=== PATIENT | female | born 1990 | race Caucasian/White ===

== ENCOUNTER → 2020-03-01 | Outpatient (CLI) | payer BC ==
[~2020-03-01] MED LIST: CONCERTA PO; LORATADINE10 MG PO; SINGULAIR4 MG PO
== END ==
LOC: ZCOL.LAB 10:07
DX: Z11.59 Encounter for screening for other viral diseases (principal)

== ENCOUNTER 2021-01-25 08:44 | Emergency (ER) | payer BC ==
[~2021-01-25] VITALS: Ht 167.6 cm; Wt 92.7 kg
[~2021-01-25 08:44] MED LIST changes: +SINGULAIR 110 MG/TAB PO; -SINGULAIR4 MG PO
[2021-01-25 09:00] VITALS: TEMP 98.6
[2021-01-25 09:32] LABS: BASO # 0.1 (0.0-0.2); BASO % 0.5 % (0.0-2.0); EOS # 0.2 (0.0-0.7); GRAN # 6.3 (1.4-6.5); GRAN % 67.8 % (42.2-75.2); HEMATOCRIT 40.3 % (37.0-47.0); HEMOGLOBIN 12.9 g/dl (12.5-16.0); LYMPH # 2.2 (1.2-3.4); LYMPH % 23.8 % (20.0-51.0); MEAN CELL VOLUME 89 fl (80.0-100.0); MEAN CORPUSCULAR HEMOGLOBIN 28 pg (27.0-31.0); MEAN CORPUSCULAR HGB CONC 32 g/dl (33.0-37.0); MEAN PLATELET VOLUME 10.3 fl (7.4-10.4); MONO # 0.5 (0.1-0.6); MONO % 5.6 % (1.7-9.3); PLATELET COUNT 334 K/mm3 (130-400); RED BLOOD COUNT 4.54 M/mm3 (4.10-5.30); REDCELL DISTRIBUTION WIDTH-CV 13.7 % (11.5-14.5)
[2021-01-25 09:42] LABS: PROTHROMBIN TIME 11.4 SECONDS (9.7-12.8)
[2021-01-25 09:45] LABS: PARTIAL THROMBOPLASTIN TIME 32.3 SECONDS (26.0-37.0)
[2021-01-25 09:51] LABS: ALANINE AMINOTRANSFERASE 18 U/L (4-34); ALBUMIN 4.1 gm/dL (3.5-5.0); ALKALINE PHOSPHATASE 73 U/L (50-136); ANION GAP 7 mmol/L (7-16); AST,SGOT 28 U/L (15-37); BILIRUBIN,TOTAL 0.3 mg/dL (0.0-1.0); BLOOD UREA NITROGEN 11 mg/dL (7-17); CALCIUM 9.3 mg/dL (8.4-10.2); CARBON DIOXIDE 27 mmol/L (22-30); CHLORIDE 102 mmol/L (98-107); CREATININE, serum 0.65 (0.52-1.25); GLUCOSE 109 mg/dL (74-106); POTASSIUM 4.4 mmol/L (3.4-5.0); SODIUM 136 mmol/L (137-145); TOTAL PROTEIN 7.3 gm/dL (6.4-8.2)
[2021-01-25 09:52] LABS: COLLECTION METHOD CLEAN CATCH
[2021-01-25 09:59] LABS: MUCOUS Present /lpf; PH 7 (5-8); URINE APPEARANCE Clear; URINE BACTERIA Rare /hpf; URINE BILIRUBIN Negative (NEGATIVE); URINE BLOOD Negative (NEGATIVE); URINE COLOR Yellow; URINE GLUCOSE Negative (NEGATIVE); URINE KETONE Negative (NEGATIVE); URINE LEUKOCYTE ESTERASE Negative (NEGATIVE); URINE NITRATE Negative (NEGATIVE); URINE PROTEIN(semi-quant) Negative (NEGATIVE); URINE RBC 0-2 /hpf; URINE UROBILINOGEN Negative (NEGATIVE)
[2021-01-25 10:04] LABS: TROPONIN-I < 0.012 ng/mL (0.000-0.035)
[2021-01-25] MEDS ORDERED: CARDIZEM CD 12120 MG PO (11:31)
[2021-01-25 12:00] VITALS: BP 149/83; PULSE 95
[2021-01-25] MEDS ORDERED: SPIRIVA RE2.5 MCG/Ac IH (16:34)
[2021-01-25] MEDS ORDERED: MELATONIN5 M1 SL (16:35)
[2021-01-25] MEDS ORDERED: FLONASE NASAL S16 GM NS (16:35)
[2021-01-25] MEDS ORDERED: PROAIR HFA0.09 MG/AC IH (16:40)
[2021-01-25] MEDS ORDERED: MASON NATURAL2000 IU PO (16:41)
[2021-01-25] MEDS ORDERED: CLARITIN 1010 MG/TAB PO (16:41)
[2021-01-25] MEDS ORDERED: MULTIPLE VITAMI1 TA5 PO (16:42)
[2021-01-25] MEDS ORDERED: DULERA1 AR1 IH (16:42)
[2021-01-25] MEDS ORDERED: PATADAY 2.5 ML2.5 ML OU (16:43)
[2021-01-25] MEDS ORDERED: QVAR REDIHALE10.6 G1 (16:44)
[2021-01-25] MEDS ORDERED: DUPIXENT300 MG/2 M (16:44)
[2021-01-25] MEDS ORDERED: BLISOVI FE 1-21 EACH PO (16:45)
[2021-01-25] MEDS ORDERED: PRILOSEC 20MG20 MG (16:45)
[2021-01-25] MEDS ORDERED: ZOLOFT 100MG100 MG PO (16:45)
== END 2021-01-25 12:11 | disposition home or self-care (01) ==
LOC: COL.ER 08:44
PROVIDERS: Family Medicine
DX: R06.02 Shortness of breath (principal); R00.0 Tachycardia, unspecified; J45.909 Unspecified asthma, uncomplicated
CPT/HCPCS: J7030